=== PATIENT | male | born 1980 | race Two or more races ===

== ENCOUNTER 2021-07-15 08:09 | Day surgery (SDC) | payer OTHER ==
[2021-07-15] VITALS (14 sets, daily range): BP systolic 110–146; BP diastolic 61–93
[~2021-07-15] VITALS: Ht 165.1 cm; Wt 70.5 kg
[~2021-07-15 08:09] MED LIST: ACET-1008 PO; ceFAZolin inj. 2,000 MG in dextrose 5%-water 100 ML IV ONE; famotidine 20mg tablet PO ONE; ringers solution, lacted 1,000 ML IV SCH
[2021-07-15] MEDS ORDERED: ROPIVAcaine 0.5% (5mg/ml) 30ml vial ONE ×2 (09:47→11:35)
[2021-07-15] MEDS ORDERED: epiNEPHrine 1 mg/ml inj ONE (09:47)
[2021-07-15] MEDS ORDERED: gelatin sponge, absorbable (Gelfoam 100) sponge TP ONE (09:48)
[2021-07-15] MEDS ORDERED: Thrombin (Bovine) 5,000 unit vial TP ONE (09:48)
[2021-07-15] MEDS ORDERED: fentaNYL/PF 50MCG/1 ML 2ML syringe ONE (11:31)
[2021-07-15] MEDS ORDERED: midazolam 1 mg/ML 2ml injection ONE ×2 (11:31)
[2021-07-15] MEDS ORDERED: sevoflurane 250ml liquid IH ONE (11:35)
[2021-07-15] MEDS ORDERED: ringers solution, lacted 1,000 ML IV SCH (12:15)
[2021-07-15] MEDS ORDERED: morphine 2 MG/ML inj. syringe IV PRN (12:15)
[2021-07-15] MEDS ORDERED: proCHLORperazine 10 MG/2 ml inj IV PRN (12:15)
[2021-07-15] MEDS ORDERED: meperidine/PF 25mg/ml syringe IV PRN ×3 (12:15)
[2021-07-15] MEDS ORDERED: morphine 4 MG/ML inj SYRINge IV PRN (12:15)
[2021-07-15] MEDS ORDERED: ondansetron/PF 4mg/2ml inj IV PRN (12:15)
[2021-07-15] MEDS ORDERED: ondansetron/PF 4mg/2ml inj ONE (12:30)
[2021-07-15] MEDS ORDERED: propofol inj 20 ML IV ONE (12:30)
[2021-07-15] MEDS ORDERED: dexamethasone sod phosphate 4mg/ml inj. ONE (12:30)
[2021-07-15] MEDS ORDERED: acetaminophen 1,000mg/100ml IV 100 ML IV ONE (12:31)
--- NOTE | 2021-07-15 13:20 | NUR ---
Received from OR via [facility], accompanied by Anesthesiologist DR BLUM and report given by Anesthesiolgist. PT PRESNSTES WITH PIV 20G LEFT HAND, RIGHT KNEE ANA WRAP MICHAEL KNEE IMOBILIZER, PEDROS. Addendum: 07/15/21 at 1341 by Echo Kinney RN, RN Amended: Links added.
[2021-07-15] MEDS ORDERED: HYDROcodone/acetaminophen 10/325mg tab PO ONE (14:50)
--- NOTE | 2021-07-15 15:20 | NUR ---
PATIENT DISCHARGED FROM PACU IN STABLE CONDITION AFTER WRITTEN AND VERBAL DISCHARGE INSTRUCTIONS GIVEN. PATIENT GAVE VERBAL UNDERSTANDING OF INSTRUCTIONS GIVEN. PATIENT LEFT FACILITY VIA WHEELCHAIR WITH RN.AND OFFICERS BACK TO [facility]. Addendum: 07/15/21 at 1551 by Echo Kinney RN, RN Amended: Links added.
--- NOTE | 2021-07-15 15:20 | NUR ---
PATIENT DISCHARGED FROM PACU IN STABLE CONDITION AFTER WRITTEN AND VERBAL DISCHARGE INSTRUCTIONS GIVEN TO PT AND . PATIENT GAVE VERBAL UNDERSTANDING OF INSTRUCTIONS GIVEN. PATIENT LEFT FACILITY VIA WHEELCHAIR WITH RN.TO PRIVATE VEHICLE WHERE PT WAS TAKEN BACK TO [facility]. Addendum: 07/15/21 at 1553 by Echo Kinney RN, RN Amended: Links added.
== END 2021-07-15 15:20 | disposition home or self-care (01) ==
LOC: PAS 08:09 → EEVIPCON 10:30 → PAS 15:20
PROVIDERS: ATTEND Orthopaedic Surgery
DX: S83.241A Other tear of medial meniscus, current injury, right knee, initial encounter (principal); S83.511A Sprain of anterior cruciate ligament of right knee, initial encounter; G89.18 Other acute postprocedural pain; Z79.899 Other long term (current) drug therapy; X58.XXXA Exposure to other specified factors, initial encounter; Y92.89 Other specified places as the place of occurrence of the external cause; Y93.89 Activity, other specified; Y99.8 Other external cause status
CPT/HCPCS: 29881; 29888; 64447; 76942; 82948; C1713; C1762; J0131; J0690; J1100; J2175; J2250; J2405; J2704; J2795; J3010; J7030; J7060; J7120; L1832; Z7506; Z7508; Z7512; A4215; A4618; A6449; A7000; J0171